=== PATIENT | female | born 1990 | race Caucasian/White ===

== ENCOUNTER 2016-09-05 12:17 | Emergency (ER) | payer OTHER ==
[2016-09-05 12:18] VITALS: BMI 28.3
[2016-09-05 12:32] VITALS: O2SAT 98
--- NOTE | 2016-09-05 13:52 | ED PDOC ---
HPI: Chest Pain Time Seen by Provider: 09/05/16 12:51 Chief Complaint (Nursing): Chest Pain Chief Complaint (Provider): Chest Pain History Per: Patient History/Exam Limitations: no limitations Onset/Duration Of Symptoms: Days Current Symptoms Are (Timing): Still Present Severity: Mild Quality: Pressure, "Pain" Associated Symptoms: denies: Nausea, Dyspnea, Syncope Modifying Factors: None Exacerbating Factors: None Alleviating Factors: None Additional Complaint(s): Patient is a 26 year old female who presents to ED for chest pain for 3 days. Pain is described as pressure to the right sided with radiation to mid sternum, worsened with deep breathing. Patient notes mild relief with hunching forward. Denies left sided chest pain, radiation to the back/abdomen, dizziness, headache , leg pain. Patient denies any recent URI symptoms Of note patient returned to the gym today for the first time in 3 weeks and the pain was unchanged Past Medical History Reviewed: Historical Data, Nursing Documentation, Vital Signs Vital Signs: Last Vital Signs Temp 97.8 F 09/05/16 12:29 Pulse 80 09/05/16 12:29 Resp 20 09/05/16 12:29 BP 108/62 09/05/16 12:29 Pulse Ox 98 09/05/16 13:56 - Medical History PMH: Asthma - Surgical History Surgical History: No Surg Hx - Family History Family History: States: Unknown Family Hx - Living Arrangements Living Arrangements: With Family - Immunization History Hx Tetanus Toxoid Vaccination: No Hx Influenza Vaccination: No Hx Pneumococcal Vaccination: No - Home Medications Home Medications: Ambulatory Orders Medication Instructions Recorded Vit Calc,Iron,Folic 1 tab PO DAILY 07/11/16 [ Vitamins] Ibuprofen [Motrin] 600 mg PO TID PRN #30 tab 09/05/16 - Allergies Allergies/Adverse Reactions: Allergies Allergy/AdvReac Type Severity Reaction Status Date / Time No Known Allergies Allergy Verified 09/05/16 12:29 Review of Systems ROS Statement: Except As Marked, All Systems Reviewed And Found Negative Constitutional: Negative for: Fever, Weakness Cardiovascular: Positive for: Chest Pain. Negative for: Palpitations, Light Headedness Respiratory: Positive for: Pleuritic Pain. 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 Negative for: Murmur Respiratory: Positive for: Normal Breath Sounds. Negative for: Respiratory Distress Gastrointestinal/Abdominal: Positive for: Normal Exam, Soft. Negative for: Tenderness Back: Positive for: Normal Inspection. Negative for: L CVA Tenderness, R CVA Tenderness Extremity: Positive for: Normal ROM. Negative for: Pedal Edema, Calf Tenderness Lymphatic: Positive for: Normal Exam Neurologic/Psych: Positive for: Alert, Oriented, Gait (normal ). Negative for: Motor/Sensory Deficits - Laboratory Results Result Diagrams: 09/05/16 13:30 09/05/16 13:30 - ECG ECG: Positive for: Interpreted By Me, Viewed By Me ECG Rhythm: Positive for: Normal QRS, Normal ST Segment, Sinus Rhythm (66). Negative for: ST/T Changes O2 Sat by Pulse Oximetry: 98 (RA) Pulse Ox Interpretation: Normal - Radiology X-Ray: Interpreted by Me, Viewed By Me, Read By Radiologist X-Ray Interpretation: No Acute Disease Medical Decision Making Medical Decision Making: Time: 131 Initial impression: Chest pain R/O ACS Initial plan: -- EKG -- CMP -- Lipase -- Troponin -- Urine preg -- CBC -- D-Dimer -- CXR -- Toradol -- Cardiac monitoring Scribe Attestation: Documented by Ruby Diop acting as a scribe for Giacomo Robin PA-C. MD Scribe Attestation: All medical record entries made by the Scribe were at my direction and personally dictated by me. I have reviewed the chart and agree that the record accurately reflects my personal performance of the history, physical exam, medical decision making, and the department course for this patient. I have also personally directed, reviewed, and agree with the discharge instructions and disposition. Labs reviewed no acute finding. Trop and d-dimer negative she has no risk factors for PE/DVT, no tachycardia, negative d-dimer with chest wall tenderness. she went to the gym and worked out today with no change in her pain, no left sided pain likely musculoskeletal in nature - she states after toradol pain has greatly improved discussed labs, finding and likely reason for pain, return information discussed , follow up discussed all questions answered. Disposition - Clinical Impression Clinical Impression: Chest wall pain - Patient ED Disposition Is Patient to be Admitted: No Counseled Patient/Family Regarding: Studies Performed, Diagnosis, Need For Followup, Rx Given - Disposition Referrals: [facility] [Outside] Disposition: Routine/Home Disposition Time: 15:21 Condition: IMPROVED Additional Instructions: follow up with primary doctor or clinic without fail return for any new concerns. you should follow up with a primary doctor prior to start work out program Prescriptions: Ibuprofen [Motrin] 600 mg PO TID PRN #30 tab PRN Reason: Other Instructions: Chest Wall Pain (ED), Noncardiac Chest Pain (ED) Print Language: AMERICAN
[2016-09-05 13:53] LABS: BASO # 0.1 K/uL (0.0-0.2); BASO % 0.7 % (0.0-2.0); EOS # 0.2 K/uL (0.0-0.7); EOS % 2.2 % (0.0-4.0); LYMPH # 1.2 K/uL (1.0-4.3); LYMPH % 17.4 % (20.0-40.0); MEAN CELL VOLUME 80.5 fl (81.0-99.0); MEAN CORPUSCULAR HEMOGLOBIN 25.7 pg (27.0-31.0); MEAN CORPUSCULAR HGB CONC 31.9 g/dL (33.0-37.0); MEAN PLATELET VOLUME 9.6 fl (7.2-11.7); MONO # 0.3 K/uL (0.0-0.8); MONO % 4.9 % (0.0-10.0); NEUT # 5.4 K/uL (1.8-7.0); NEUT % 74.8 % (50.0-75.0); NRBC % 0.1 % (0.0-0.0); RED CELL DISTRIBUTION WIDTH 17.9 % (11.5-14.5); WHITE BLOOD COUNT 7.2 K/uL (4.8-10.8)
[2016-09-05 14:05] LABS: ALB/GLOB RATIO 1.2 (1.0-2.1); ALKALINE PHOSPHATASE 98 U/L (38-126); ALT/SGPT 33 U/L (9-52); AST/SGOT 32 U/L (14-36); BILIRUBIN,TOTAL 0.4 mg/dl (0.2-1.3); BLOOD UREA NITROGEN 15 mg/dl (7-17); CALCIUM 9.6 mg/dL (8.4-10.2); CARBON DIOXIDE 23 mmol/L (22-30); CHLORIDE 106 mmol/L (98-107); GFR AFRICAN-AMERICAN > 60; GLUCOSE,RANDOM 87 mg/dL (65-105); LIPASE 95 U/L (23-300); POTASSIUM 4.1 MMOL/L (3.6-5.0); SODIUM 143 mmol/l (132-148); TOTAL PROTEIN 7.9 G/DL (6.3-8.2)
--- NOTE | 2016-09-05 14:56 | RAD ---
HISTORY: chest pain COMPARISON: Comparison chest 03/04/2014. TheNo prior. TECHNIQUE: Chest PA and lateral FINDINGS: LUNGS: No active pulmonary disease. PLEURA: No significant pleural effusion identified. No pneumothorax apparent. CARDIOVASCULAR: Normal. OSSEOUS STRUCTURES: No significant abnormalities. VISUALIZED UPPER ABDOMEN: Normal. OTHER FINDINGS: None. IMPRESSION: No active disease.
[2016-09-05 15:36] VITALS: BP 128/78; PULSE 78; RESP 19; TEMP 97.7
--- NOTE | 2016-09-06 10:56 | CARD ---
APPROVED REPORT EKG Measurement Heart [id number] <Conclusion> Normal sinus rhythm Normal ECG
== END 2016-09-05 15:37 | disposition home or self-care (01) ==
LOC: H.ER 12:17
DX: R07.9 Chest pain, unspecified (principal)

== ENCOUNTER 2016-09-26 22:07 | Emergency (ER) | payer SELFPAY ==
[2016-09-26 22:07] VITALS: BMI 28.3
[2016-09-26 22:14] VITALS: BP 110/63; PULSE 70; RESP 18; TEMP 97.6; O2SAT 100
--- NOTE | 2016-09-26 22:40 | ED PDOC ---
HPI: General Adult Time Seen by Provider: 09/26/16 22:16 Chief Complaint (Nursing): Lower Extremity Problem/Injury Chief Complaint (Provider): R foot pain History Per: Patient Additional Complaint(s): Pt. states for the past 3 days she's had atraumatic R foot pain, swelling, and redness. Reports that she's had symptoms in the past but have never been that severe until now. Denies FB sensation, fever, trauma, hx of DM. Past Medical History Reviewed: Historical Data, Nursing Documentation, Vital Signs Vital Signs: Last Vital Signs Temp 97.6 F 09/26/16 22:12 Pulse 70 09/26/16 22:12 Resp 18 09/26/16 22:12 BP 110/63 09/26/16 22:12 Pulse Ox 100 09/26/16 22:44 - Medical History PMH: Asthma - Family History Family History: States: No Known Family Hx - Immunization History Hx Tetanus Toxoid Vaccination: No Hx Influenza Vaccination: No Hx Pneumococcal Vaccination: No - Home Medications Home Medications: Ambulatory Orders Medication Instructions Recorded Vit Calc,Iron,Folic 1 tab PO DAILY 07/11/16 [ Vitamins] Cephalexin [cephalexin] 500 mg PO Q6 #28 cap 09/26/16 Naproxen [Naprosyn] 500 mg PO BID PRN #30 tab 09/26/16 - Allergies Allergies/Adverse Reactions: Allergies Allergy/AdvReac Type Severity Reaction Status Date / Time No Known Allergies Allergy Verified 09/05/16 12:29 Review of Systems ROS Statement: Except As Marked, All Systems Reviewed And Found Negative Musculoskeletal: Positive for: Foot Pain Physical Exam - Physical Exam Appears: Positive for: Well, Non-toxic, No Acute Distress Skin: Positive for: Normal Color, Warm. Negative for: Rash Pulses-Dorsalis Pedis (R): 2+ Extremity: Positive for: Normal ROM, Other (R plantar surface of foot between 2nd and 3rd MCP with mild swelling and erythema without vesicle, fluctuance, induration, or break in skin integrity) - ECG O2 Sat by Pulse Oximetry: 100 - Progress ED Course And Treament: FSBS: 107 Toradol 15mg IM given. Foot ry wrapped by RN. Crutches along with crutch walking instructions provided. Disposition - Clinical Impression Clinical Impression: Cellulitis - Patient ED Disposition Is Patient to be Admitted: No - Disposition Referrals: Marty Patel MD [Staff Provider] - [facility] [Outside] Disposition: Routine/Home Disposition Time: 22:43 Condition: STABLE Additional Instructions: Follow up with podiatry on Thursday without fail. Prescriptions: Cephalexin [cephalexin] 500 mg PO Q6 #28 cap Naproxen [Naprosyn] 500 mg PO BID PRN #30 tab PRN Reason: Pain Instructions: Cellulitis (ED)
== END 2016-09-26 23:03 | disposition home or self-care (01) ==
LOC: H.ER 22:07
DX: L03.116 Cellulitis of left lower limb (principal); J45.909 Unspecified asthma, uncomplicated
CPT/HCPCS: 81025; 82948; 96372; 99285; J1885

== ENCOUNTER 2017-02-15 10:35 | Emergency (ER) | payer MEDICAID, OTHER ==
[2017-02-15 10:43] VITALS: BMI 21.5
[2017-02-15 10:51] VITALS: RESP 16; TEMP 97.8; O2SAT 99
[2017-02-15 11:19] LABS: BASO # 0.1 K/uL (0.0-0.2); BASO % 1.1 % (0.0-2.0); EOS # 0.2 K/uL (0.0-0.7); EOS % 3.8 % (0.0-4.0); HEMATOCRIT 37.9 % (34.0-47.0); LYMPH # 1.2 K/uL (1.0-4.3); LYMPH % 23.5 % (20.0-40.0); MEAN CELL VOLUME 84.9 fl (81.0-99.0); MEAN CORPUSCULAR HGB CONC 31.8 g/dL (33.0-37.0); MONO # 0.4 K/uL (0.0-0.8); MONO % 7.8 % (0.0-10.0); NEUT # 3.1 K/uL (1.8-7.0); NEUT % 63.8 % (50.0-75.0); RED CELL DISTRIBUTION WIDTH 14.8 % (11.5-14.5); WHITE BLOOD COUNT 4.9 K/uL (4.8-10.8)
[2017-02-15 11:28] LABS: BLOOD UREA NITROGEN 20 mg/dl (7-17); CALCIUM 9.4 mg/dL (8.4-10.2); CARBON DIOXIDE 24 mmol/L (22-30); CHLORIDE 106 mmol/L (98-107); GFR AFRICAN-AMERICAN > 60; GLUCOSE,RANDOM 101 mg/dL (65-105); POTASSIUM 3.9 MMOL/L (3.6-5.0); SODIUM 140 mmol/l (132-148)
--- NOTE | 2017-02-15 11:38 | ED PDOC ---
HPI: Chest Pain Time Seen by Provider: 02/15/17 10:44 Chief Complaint (Nursing): Chest Pain Chief Complaint (Provider): Chest pain History Per: Patient History/Exam Limitations: no limitations Onset/Duration Of Symptoms: Hrs Current Symptoms Are (Timing): Still Present Associated Symptoms: Nausea Exacerbating Factors: Deep Breathing Additional Complaint(s): Patient is a 26 y/o female with a past medical history of asthma brought to the emergency department by EMS for left sided, constant and non-radiating chest pain with associated nausea that started an hour prior to arrival and worsens when she takes a deep breath. Denies similar pain in the past, shortness of breath, cough, or any other complaints. Of note, patient delivered a baby several months ago who she bottle-feeds. PCP: Dr. Chuy Cotter Past Medical History Reviewed: Historical Data, Nursing Documentation, Vital Signs Vital Signs: Last Vital Signs Temp 97.8 F 02/15/17 10:45 Pulse 64 02/15/17 12:56 Resp 16 02/15/17 10:45 BP 116/89 02/15/17 10:45 Pulse Ox 99 02/15/17 12:56 - Medical History PMH: Asthma - Surgical History Surgical History: No Surg Hx - Family History Family History: States: CAD, Other Other Family History: Pulmonary embolism - Social History Current smoker - smoking cessation education provided: No Ex-Smoker (has not smoked in the last 12 months): No Alcohol: None Drugs: Denies - Immunization History Hx Tetanus Toxoid Vaccination: No Hx Influenza Vaccination: No Hx Pneumococcal Vaccination: No - Home Medications Home Medications: Ambulatory Orders Medication Instructions Recorded Vit Calc,Iron,Folic 1 tab PO DAILY 07/11/16 [ Vitamins] Cephalexin [cephalexin] 500 mg PO Q6 #28 cap 09/26/16 Naproxen [Naprosyn] 500 mg PO BID PRN #30 tab 09/26/16 Ibuprofen [Motrin] 600 mg PO Q6 #20 tab 02/15/17 - Allergies Allergies/Adverse Reactions: Allergies Allergy/AdvReac Type Severity Reaction Status Date / Time No Known Allergies Allergy Verified 09/05/16 12:29 TE Risk Score for UA/NSTEMI - TE Risk Score Age > 64: NO 3 or more CAD Risk Factors: NO Known CAD (Stenosis greater than 50%): NO Aspirin use in past 7 days: NO Severe Angina: NO EKG ST changes greater than 0.5mm: NO Positive Cardiac Marker: NO TE Score: 0 Risk %: 5% Curb-65 Severity Score - CURB-65 Severity Score Confusion: No Bun >19mg/dl (>7mmol/L): No Respiratory Rate greater than/equal to 30: No Systolic BP <90 or Diastolic BP less than/equal 60mmHg: No Age >64: No Curb-65 Score: 0 Percentage 30-day mortality: 0.6% Review of Systems ROS Statement: Except As Marked, All Systems Reviewed And Found Negative Cardiovascular: Positive for: Chest Pain Respiratory: Negative for: Cough, Shortness of Breath Gastrointestinal: Positive for: Nausea Physical Exam - Reviewed Nursing Documentation Reviewed: Yes Vital Signs Reviewed: Yes - Physical Exam Appears: Positive for: Uncomfortable Head Exam: Positive for: ATRAUMATIC, NORMAL INSPECTION, NORMOCEPHALIC Skin: Positive for: Normal Color, Warm, Dry Eye Exam: Positive for: Normal appearance Neck: Positive for: Normal, Painless ROM, Supple Cardiovascular/Chest: Positive for: Regular Rate, Rhythm, Other (Mild tenderness over sternum). Negative for: Chest Non Tender, Murmur Respiratory: Positive for: Normal Breath Sounds. Negative for: Accessory Muscle Use, Wheezing, Respiratory Distress Gastrointestinal/Abdominal: Positive for: Normal Exam, Soft. Negative for: Tenderness Extremity: Positive for: Normal ROM. Negative for: Pedal Edema Neurologic/Psych: Positive for: Alert, Oriented (x3) - Laboratory Results Result Diagrams: 02/15/17 11:10 02/15/17 11:10 - ECG ECG Rhythm: Positive for: Normal QRS, Normal ST Segment. Negative for: ST/T Changes Rate: 64 O2 Sat by Pulse Oximetry: 99 (RA) Pulse Ox Interpretation: Normal - Radiology X-Ray: Interpreted by Me, Viewed By Me X-Ray Interpretation: No Acute Disease - Progress Re-evaluation Time: 12:40 Condition: Re-examined, Improved Medical Decision Making Medical Decision Making: Time: 11:03 Initial impression: Chest pain Differential diagnoses include but not limited to pulmonary embolism, chest wall pain, and pneumothorax Initial plan: EKG Labs Chest X-Ray Toradol 15 mg IVP monitoring analyst continued Reevaluation 11:12 Chest x-ray reviewed by me. No acute findings. Scribe Attestation: Documented by Ирина Mata, acting as a scribe for Ida Gonzalez MD. Provider Scribe Attestation: All medical record entries made by the Scribe were at my direction and personally dictated by me. I have reviewed the chart and agree that the record accurately reflects my personal performance of the history, physical exam, medical decision making, and the department course for this patient. I have also personally directed, reviewed, and agree with the discharge instructions and disposition. Disposition - Clinical Impression Clinical Impression: Chest pain - Patient ED Disposition Is Patient to be Admitted: No Doctor Will See Patient In The: Office Counseled Patient/Family Regarding: Studies Performed, Diagnosis, Need For Followup - Disposition Referrals: [facility] [Outside] Disposition: Routine/Home Disposition Time: 12:43 Condition: GOOD Additional Instructions: Follow up with your PCP in 2-3 days. Prescriptions: Ibuprofen [Motrin] 600 mg PO Q6 #20 tab Instructions: Chest Pain (ED)
[2017-02-15 11:52] VITALS: PULSE 64
[2017-02-15 13:12] VITALS: BP 118/71
--- NOTE | 2017-02-15 13:36 | RAD ---
PROCEDURE: CHEST RADIOGRAPH, 1 VIEW HISTORY: chest pain COMPARISON: Comparison chest 09/05/2016 FINDINGS: LUNGS: Clear. PLEURA: No pneumothorax or pleural fluid seen. CARDIOVASCULAR: Normal. OSSEOUS STRUCTURES: No significant abnormalities. VISUALIZED UPPER ABDOMEN: Normal. OTHER FINDINGS: None. IMPRESSION: No active disease.
--- NOTE | 2017-02-15 22:36 | CARD ---
APPROVED REPORT EKG Measurement Heart [id number] <Conclusion> Normal sinus rhythm Normal ECG
== END 2017-02-15 13:12 | disposition home or self-care (01) ==
LOC: H.ER 10:35
DX: R07.89 Other chest pain (principal); Z82.49 Family history of ischemic heart disease and other diseases of the circulatory system
CPT/HCPCS: 71010; 80048; 81025; 84484; 85025; 85378; 93005; 96374; 99282; J1885

== ENCOUNTER 2017-06-12 01:43 | Emergency (ER) | payer MEDICAID, OTHER ==
[2017-06-12 01:44] VITALS: BMI 21.5
[2017-06-12 02:15] VITALS: BP 103/66; PULSE 76; RESP 16; TEMP 97.8; O2SAT 98
[2017-06-12] MEDS ORDERED: Oxycodone/Acetaminophen 5/325 mg Tab PO STA (02:29)
[2017-06-12] MEDS ORDERED: Oxycodone/Acetaminophen 5/325 mg Tab ONE (02:40)
--- NOTE | 2017-06-12 03:38 | ED PDOC ---
Lower Extremity Pain/Injury Time Seen by Provider: 06/12/17 02:26 Chief Complaint (Nursing): Lower Extremity Problem/Injury History Per: Patient History/Exam Limitations: no limitations Onset/Duration Of Symptoms: Other (x tonight) Current Symptoms Are (Timing): Still Present Additional Complaint(s): Ramandeep is a 27 year old female who presents to the emergency department with left foot pain. Patient states she stump her pinky toe against door stopper. Denies any other injuries. PMD: Provider [place] Past Medical History Reviewed: Historical Data, Nursing Documentation, Vital Signs Vital Signs: Last Vital Signs Temp 97.8 F 06/12/17 02:13 Pulse 76 06/12/17 02:13 Resp 16 06/12/17 02:13 BP 103/66 06/12/17 02:13 Pulse Ox 98 06/12/17 02:13 - Medical History PMH: Asthma Denies: Chronic Kidney Disease - Surgical History Surgical History: No Surg Hx - Family History Family History: States: Unknown Family Hx, CAD - Social History Current smoker - smoking cessation education provided: No Alcohol: None Drugs: Denies - Immunization History Hx Tetanus Toxoid Vaccination: No Hx Influenza Vaccination: No Hx Pneumococcal Vaccination: No - Home Medications Home Medications: Ambulatory Orders Medication Instructions Recorded Vit Calc,Iron,Folic 1 tab PO DAILY 07/11/16 [ Vitamins] Cephalexin [cephalexin] 500 mg PO Q6 #28 cap 09/26/16 Naproxen [Naprosyn] 500 mg PO BID PRN #30 tab 09/26/16 Ibuprofen [Motrin] 600 mg PO Q6 #20 tab 02/15/17 Naproxen [Naprosyn] 500 mg PO Q6 #30 tablet 06/12/17 - Allergies Allergies/Adverse Reactions: Allergies Allergy/AdvReac Type Severity Reaction Status Date / Time No Known Allergies Allergy Verified 09/05/16 12:29 Review of Systems Musculoskeletal: Positive for: Other (Pinky Toe Pain) Physical Exam - Reviewed Nursing Documentation Reviewed: Yes Vital Signs Reviewed: Yes - Physical Exam Extremity: Positive for: Other (Tenderness to left pinky, no swelling or erythema, no step offs) - ECG O2 Sat by Pulse Oximetry: 98 (RA) Pulse Ox Interpretation: Normal - Radiology X-Ray: Interpreted by Me, Viewed By Me X-Ray Interpretation: No Acute Disease Medical Decision Making Medical Decision Making: Time: 02:29 Impression: Contusion vs. Fracture Plan: - Motrin Tab 600 mg PO STAT STA - Percocet 5/325 mg Tab - Left Foot 5th Digit (Toe) X-Ray was viewed and interpreted by me. Negative results. Upon provider evaluation patient is medically stable, and requires no further treatment in the ED at this time. Patient will be discharged with Rx for Naprosyn. Counseling was provided and all questions were answered regarding diagnosis and need for follow up with Podiatry Clinic. There is agreement to discharge plan. Return if symptoms persist or worsen. Scribe Attestation: Documented by Stephon Sosa, acting as a scribe for Charlie Maravilla MD Provider Scribe Attestation: All medical record entries made by the Scribe were at my direction and personally dictated by me. I have reviewed the chart and agree that the record accurately reflects my personal performance of the history, physical exam, medical decision making, and the department course for this patient. I have also personally directed, reviewed, and agree with the discharge instructions and disposition. Disposition - Clinical Impression Clinical Impression: Toe contusion - Patient ED Disposition Is Patient to be Admitted: No - Disposition Referrals: Podiatry Clinic [Outside] Disposition: Routine/Home Disposition Time: 03:35 Condition: STABLE Prescriptions: Naproxen [Naprosyn] 500 mg PO Q6 #30 tablet Instructions: Foot Contusion (ED) Forms: [employer] (Latvian)
--- NOTE | 2017-06-12 12:19 | RAD ---
PROCEDURE: Radiographs of the left small digit. TECHNIQUE:: AP radiograph of the left foot, with oblique and lateral view of the left small digit. COMPARISON: None. FINDINGS: BONES: In the oblique view, there is a triangular bony structure too large to represent an accessory ossicle for the 5th digit proximal interphalangeal joint. It is appreciated plantar to the head of the proximal phalanx left small digit and cortical margins are not identified at the dorsal side of this fragment suspicious for a displaced fracture. Follow-up CT through the digits may be useful for better characterization. Lateral view is appear limited due to excessive pain experienced during attempted isolating the small digit. JOINTS: No dislocation is appreciate throughout the 5th digit and single AP view of the left foot is otherwise unremarkable appearing. SOFT TISSUES: Normal. OTHER FINDINGS: None. IMPRESSION: Findings highly suspicious for a minimally displaced fracture of the proximal phalanx left small digit. No dislocation. Follow-up CT through the left forefoot may be useful for better characterization of this finding. (Discrepancy common side and provided through PACS emergency comment section)
== END 2017-06-12 04:04 | disposition home or self-care (01) ==
LOC: H.ER 01:43
DX: M79.675 Pain in left toe(s) (principal); J45.909 Unspecified asthma, uncomplicated

== ENCOUNTER 2017-06-15 13:17 | Emergency (ER) | payer OTHER ==
[2017-06-15 13:18] VITALS: BMI 21.5
[2017-06-15 13:32] VITALS: BP 106/75; PULSE 86; RESP 16; TEMP 98; O2SAT 100
--- NOTE | 2017-06-15 14:27 | ED PDOC ---
Lower Extremity Pain/Injury Time Seen by Provider: 06/15/17 13:28 Chief Complaint (Nursing): Lower Extremity Problem/Injury Chief Complaint (Provider): Left toe injury History Per: Patient History/Exam Limitations: no limitations Onset/Duration Of Symptoms: Days (3 days ago) Current Symptoms Are (Timing): Still Present Additional Complaint(s): 27 y/o patient returns to the ED after being seen 3 days ago for a reevaluation with respect to her left toe injury. Patient received a call from the ED saying that her x-rays, which were initially normal, might indicate a possible fracture. Patient also states that she removed the darlin tape put around her toes at home due to pain, and has been experiencing increasing pain to the left 5th toe. Patient denies numbness, tingling, or any new injury. Past Medical History Reviewed: Historical Data, Nursing Documentation, Vital Signs Vital Signs: Last Vital Signs Temp 98.0 F 06/15/17 13:30 Pulse 86 06/15/17 13:30 Resp 16 06/15/17 13:30 BP 106/75 06/15/17 13:30 Pulse Ox 100 06/15/17 13:30 - Medical History PMH: Asthma Denies: Chronic Kidney Disease - Surgical History Surgical History: No Surg Hx - Family History Family History: States: Unknown Family Hx, CAD - Social History Current smoker - smoking cessation education provided: No Ex-Smoker (has not smoked in the last 12 months): No Alcohol: None Drugs: Denies - Immunization History Hx Tetanus Toxoid Vaccination: No Hx Influenza Vaccination: No Hx Pneumococcal Vaccination: No - Home Medications Home Medications: Ambulatory Orders Medication Instructions Recorded Vit Calc,Iron,Folic 1 tab PO DAILY 07/11/16 [ Vitamins] Cephalexin [cephalexin] 500 mg PO Q6 #28 cap 09/26/16 Naproxen [Naprosyn] 500 mg PO BID PRN #30 tab 09/26/16 Ibuprofen [Motrin] 600 mg PO Q6 #20 tab 02/15/17 Naproxen [Naprosyn] 500 mg PO Q6 #30 tablet 06/12/17 Acetaminophen with Codeine 1 - 2 each PO Q6 #10 tablet 06/15/17 [Tylenol with Codeine #3 Tablet] - Allergies Allergies/Adverse Reactions: Allergies Allergy/AdvReac Type Severity Reaction Status Date / Time No Known Allergies Allergy Verified 09/05/16 12:29 Review of Systems ROS Statement: Except As Marked, All Systems Reviewed And Found Negative Constitutional: Negative for: Fever Musculoskeletal: Positive for: Foot Pain (increasing left 5th toe pain) Physical Exam - Reviewed Nursing Documentation Reviewed: Yes Vital Signs Reviewed: Yes - Physical Exam Extremity: Positive for: Tenderness (left 5th toe), Other (mild ecchymosis on doral surface area of the foot). Negative for: Deformity DTR - Ankle (R): 2+ DTR - Ankle (L): 2+ - ECG O2 Sat by Pulse Oximetry: 100 (RA) Pulse Ox Interpretation: Normal - Progress ED Course And Treament: CT L foot w/o contrast: L 5th proximal phalanx chip fx Toes darlin taped. Cast shoe placed. Crutches provided. Instructed to f/u with podiatry clinic. Medical Decision Making Medical Decision Making: Time: --13:53 Impression: --Left Toe Injury Plan: --CT EXT Lower W/O Contrast Reassess -- Scribe Attestation: Documented by Nicolas Christie acting as a scribe for BELA Jang Disposition - Clinical Impression Clinical Impression: Toe fracture - Patient ED Disposition Is Patient to be Admitted: No - Disposition Referrals: Podiatry Clinic [Outside] [facility] [Outside] Disposition: Routine/Home Disposition Time: 16:45 Condition: STABLE Prescriptions: Acetaminophen with Codeine [Tylenol with Codeine #3 Tablet] 1 - 2 each PO Q6 # 10 tablet Instructions: Toe Fracture (ED) Forms: [facility] ([place]), [facility] School/Work Excuse
--- NOTE | 2017-06-15 17:25 | CT ---
PROCEDURE: CT of the left foot without contrast HISTORY: attention L foot; ? L 5th toe fx COMPARISON: Comparison is made with the previous x-ray of the left foot dated 06/12/2017 TECHNIQUE: Axial and reformatted coronal and sagittal CT images of the left foot were obtained without IV contrast administration. 3D reconstructed images were processed and submitted for evaluation. Total exam DLP: 148.10 FINDINGS: There is a displaced chip fracture at the distal end of the proximal phalanx of the 5th toe extending to the articular surface of the proximal interphalangeal joint. No other acute fracture seen. There is subcutaneous soft tissue edema and stranding adjacent to 1st toe. IMPRESSION: Acute displaced chip fracture at the distal end of the proximal phalanx of the 5th toe. Preliminary report was submitted by [facility].
== END 2017-06-15 16:59 | disposition home or self-care (01) ==
LOC: H.ER 13:17
DX: M79.675 Pain in left toe(s) (principal)

== ENCOUNTER 2017-07-01 20:44 | Emergency (ER) | payer OTHER ==
[2017-07-01 20:45] VITALS: BMI 21.5
[2017-07-01 20:51] VITALS: BP 131/54; PULSE 100; RESP 16; TEMP 101; O2SAT 100
--- NOTE | 2017-07-01 21:06 | ED PDOC ---
HPI: CCC, URI, Sore Throat Time Seen by Provider: 07/01/17 20:59 Chief Complaint (Nursing): Flu-like Symptoms Chief Complaint (Provider): Flu-like Symptoms History Per: Patient History/Exam Limitations: no limitations Onset/Duration Of Symptoms: Days (x 4) Current Symptoms Are (Timing): Still Present Sick Contacts (Context): Family Member(s) (daughters) Associated Symptoms: Fever, Sore Throat, Cough, Myalgias, Nasal Congestion Additional Complaint(s): 27 y/o female presents to the emergency department complaining of cough with associated fever, congestion, sore throat, and body aches for 4 days. Has taken 3 days of Zithromax and 3 days of Tamiflu without improvement. Today took Motrin at 6PM and Tylenol at 4PM. Patient has history of asthma but is not using an inhaler. Notes wheezing, coughing, and feeling generally not well. No vomiting or diarrhea. (+)Sick contacts at home, both daughters have been diagnosed with flu. PMD: None Past Medical History Reviewed: Historical Data, Nursing Documentation, Vital Signs Vital Signs: Last Vital Signs Temp 101 F H 07/01/17 20:48 Pulse 100 H 07/01/17 20:48 Resp 16 07/01/17 20:48 BP 131/54 L 07/01/17 20:48 Pulse Ox 100 07/01/17 21:09 - Medical History PMH: Asthma Denies: Chronic Kidney Disease - Family History Family History: States: Unknown Family Hx, CAD - Immunization History Hx Tetanus Toxoid Vaccination: No Hx Influenza Vaccination: No Hx Pneumococcal Vaccination: No - Home Medications Home Medications: Ambulatory Orders Medication Instructions Recorded Vit Calc,Iron,Folic 1 tab PO DAILY 07/11/16 [ Vitamins] Cephalexin [cephalexin] 500 mg PO Q6 #28 cap 09/26/16 Naproxen [Naprosyn] 500 mg PO BID PRN #30 tab 09/26/16 Ibuprofen [Motrin] 600 mg PO Q6 #20 tab 02/15/17 Naproxen [Naprosyn] 500 mg PO Q6 #30 tablet 06/12/17 Acetaminophen with Codeine 1 - 2 each PO Q6 #10 tablet 06/15/17 [Tylenol with Codeine #3 Tablet] Acetaminophen [Acetaminophen Extra 2 tab PO Q6 PRN #24 tablet 07/01/17 Strength] Ibuprofen [Motrin Tab] 800 mg PO Q8 PRN #21 tab 07/01/17 Pseudoephedrine [Sudafed Tab] 60 mg PO Q6 PRN #24 tab 07/01/17 - Allergies Allergies/Adverse Reactions: Allergies Allergy/AdvReac Type Severity Reaction Status Date / Time No Known Allergies Allergy Verified 09/05/16 12:29 Review of Systems ROS Statement: Except As Marked, All Systems Reviewed And Found Negative Constitutional: Positive for: Fever, Other (body aches) ENT: Positive for: Nose Congestion, Throat Pain Respiratory: Positive for: Cough, Wheezing Gastrointestinal: Negative for: Nausea, Vomiting, Diarrhea Physical Exam - Reviewed Nursing Documentation Reviewed: Yes Vital Signs Reviewed: Yes - Physical Exam Appears: Positive for: Non-toxic, No Acute Distress Head Exam: Positive for: ATRAUMATIC, NORMAL INSPECTION, NORMOCEPHALIC Skin: Positive for: Normal Color, Warm, Dry Eye Exam: Positive for: EOMI, Normal appearance, PERRL ENT: Positive for: Nasal Congestion. Negative for: Pharyngeal Erythema, Tonsillar Exudate Neck: Positive for: Normal, Painless ROM, Supple Cardiovascular/Chest: Positive for: Regular Rate, Rhythm. Negative for: Murmur Respiratory: Positive for: Decreased Breath Sounds. Negative for: Rhonchi, Wheezing, Respiratory Distress Gastrointestinal/Abdominal: Positive for: Normal Exam, Soft. Negative for: Tenderness Neurologic/Psych: Positive for: Alert, Oriented - ECG O2 Sat by Pulse Oximetry: 100 (RA) Pulse Ox Interpretation: Normal Medical Decision Making Medical Decision Making: Initial Impression: 27 y/o female with flu-like symptoms Time: 21:04 Initial Plan: --ED urine --chest x-ray --NS IV 1000 ml at 1000 mls/hr --Sudafed 60 mg PO --Tylenol 975 mg PO --Reevaluation Scribe Attestation: Documented by Paulina Barnard, acting as a scribe for Charly Cisneros PA-C Provider Scribe Attestation: All medical record entries made by the Scribe were at my direction and personally dictated by me. I have reviewed the chart and agree that the record accurately reflects my personal performance of the history, physical exam, medical decision making, and the department course for this patient. I have also personally directed, reviewed, and agree with the discharge instructions and disposition. Disposition - Clinical Impression Clinical Impression: Influenza - Patient ED Disposition Is Patient to be Admitted: No - Disposition Disposition: Routine/Home Disposition Time: 22:48 Condition: FAIR Prescriptions: Acetaminophen [Acetaminophen Extra Strength] 2 tab PO Q6 PRN #24 tablet PRN Reason: Fever >100.4 F Ibuprofen [Motrin Tab] 800 mg PO Q8 PRN #21 tab PRN Reason: Fever >100.4 F Pseudoephedrine [Sudafed Tab] 60 mg PO Q6 PRN #24 tab PRN Reason: Nasal Congestion Instructions: Influenza (ED) Forms: [facility] (Nauruan), [facility] ED School/Work Excuse
[2017-07-01] MEDS: Sodium Chloride 0.9% 1,000 ML IV SCH ×2 (21:56→22:47)
--- NOTE | 2017-07-02 11:50 | RAD ---
HISTORY: ROUTINE COMPARISON: 02/15/2017 TECHNIQUE: Chest PA and lateral FINDINGS: LUNGS: No active pulmonary disease. PLEURA: No significant pleural effusion identified. No pneumothorax apparent. CARDIOVASCULAR: Normal. OSSEOUS STRUCTURES: No significant abnormalities. VISUALIZED UPPER ABDOMEN: Normal. OTHER FINDINGS: None. IMPRESSION: No active disease.
== END 2017-07-01 23:50 | disposition home or self-care (01) ==
LOC: H.ER 20:44
DX: J11.1 Influenza due to unidentified influenza virus with other respiratory manifestations (principal); J45.909 Unspecified asthma, uncomplicated
CPT/HCPCS: 71046; 81025; 99282; J7040

== ENCOUNTER 2017-08-12 08:47 | Emergency (ER) | payer OTHER ==
[2017-08-12 08:48] VITALS: BMI 21.5
[2017-08-12 09:02] VITALS: BP 110/70; PULSE 93; RESP 19; TEMP 98.4; O2SAT 97
[2017-08-12] MEDS ORDERED: Tdap Vaccine 0.5 ml Vial (10-64 yrs) IM ONE ×2 (10:00→10:35)
--- NOTE | 2017-08-12 10:23 | ED PDOC ---
Lower Extremity Pain/Injury Time Seen by Provider: 08/12/17 09:21 Chief Complaint (Nursing): Lower Extremity Problem/Injury Chief Complaint (Provider): Right Toe Injury History Per: Patient History/Exam Limitations: no limitations Onset/Duration Of Symptoms: Hrs Current Symptoms Are (Timing): Still Present Additional Complaint(s): Ramandeep Cramer is a 27 year old female with no past medical history that presents to the ED with a chief complaint of a right great toe injury. Patient reports that earlier this morning, she stubbed her toe against her dresser, and that it began to bleeding. Last tetanus unknown. Past Medical History Reviewed: Historical Data, Nursing Documentation, Vital Signs Vital Signs: Last Vital Signs Temp 98.4 F 08/12/17 09:01 Pulse 93 H 08/12/17 09:01 Resp 19 08/12/17 09:01 BP 110/70 08/12/17 09:01 Pulse Ox 97 08/12/17 09:01 - Medical History PMH: Asthma Denies: Chronic Kidney Disease - Family History Family History: States: Unknown Family Hx, CAD - Immunization History Hx Tetanus Toxoid Vaccination: No Hx Influenza Vaccination: No Hx Pneumococcal Vaccination: No - Home Medications Home Medications: Ambulatory Orders Medication Instructions Recorded Vit Calc,Iron,Folic 1 tab PO DAILY 07/11/16 [ Vitamins] Cephalexin [cephalexin] 500 mg PO Q6 #28 cap 09/26/16 Naproxen [Naprosyn] 500 mg PO BID PRN #30 tab 09/26/16 Ibuprofen [Motrin] 600 mg PO Q6 #20 tab 02/15/17 Naproxen [Naprosyn] 500 mg PO Q6 #30 tablet 06/12/17 Acetaminophen with Codeine 1 - 2 each PO Q6 #10 tablet 06/15/17 [Tylenol with Codeine #3 Tablet] Acetaminophen [Acetaminophen Extra 2 tab PO Q6 PRN #24 tablet 07/01/17 Strength] Albuterol HFA [Ventolin HFA 90 2 puff IH [id number] PRN #1 inh 07/01/17 mcg/actuation (8 g)] Ibuprofen [Motrin Tab] 800 mg PO Q8 PRN #21 tab 07/01/17 Pseudoephedrine [Sudafed Tab] 60 mg PO Q6 PRN #24 tab 07/01/17 Naproxen [Naprosyn] 500 mg PO BID PRN #15 tablet 08/12/17 - Allergies Allergies/Adverse Reactions: Allergies Allergy/AdvReac Type Severity Reaction Status Date / Time No Known Allergies Allergy Verified 08/12/17 09:00 Review of Systems ROS Statement: Except As Marked, All Systems Reviewed And Found Negative Musculoskeletal: Positive for: Foot Pain (right great toe injury) Physical Exam - Reviewed Nursing Documentation Reviewed: Yes Vital Signs Reviewed: Yes - Physical Exam Appears: Positive for: Non-toxic, No Acute Distress Head Exam: Positive for: ATRAUMATIC, NORMOCEPHALIC Skin: Positive for: Normal Color, Warm Eye Exam: Positive for: EOMI, Normal appearance, PERRL Pulses-Dorsalis Pedis (L): 2+ Pulses-Dorsalis Pedis (R): 2+ Pulses-Post. Tibialis (L): 2+ Pulses-Post. Tibialis (R): 2+ Extremity: Positive for: Normal ROM (full ROM right first toe), Tenderness ( Tenderness to palpation right first toe), Other (Dried blood present around the nail of right first toe). Negative for: Deformity (No obvious deformity) Neurologic/Psych: Positive for: Alert, Oriented. Negative for: Motor/Sensory Deficits - ECG O2 Sat by Pulse Oximetry: 97 (RA) Pulse Ox Interpretation: Normal Medical Decision Making Medical Decision Making: Impression: Right First Toe Injury Plan: * X-Ray Right Great Toe * Motrin 600 mg PO * Tetanus 0.5 ml IM * Urine Preg * Reevaluation Scribe Attestation: Documented by Gracie Rosas, acting as a scribe for Angelica Echeverria MD. Provider Scribe Attestation: All medical record entries made by the Scribe were at my direction and personally dictated by me. I have reviewed the chart and agree that the record accurately reflects my personal performance of the history, physical exam, medical decision making, and the department course for this patient. I have also personally directed, reviewed, and agree with the discharge instructions and disposition. Disposition - Clinical Impression Clinical Impression: Injury of toenail - Disposition Referrals: Podiatry Clinic [Outside] Disposition: Routine/Home Disposition Time: 11:46 Condition: STABLE Prescriptions: Naproxen [Naprosyn] 500 mg PO BID PRN #15 tablet PRN Reason: Pain, Moderate (4-7) Instructions: Toe Injury Forms: [facility] (Estonian)
--- NOTE | 2017-08-12 11:45 | CP.PCM.CON ---
History of Present Illness - History of Present Illness History of Present Illness: Consult note: Dr. Patel 27 year old female with no significant PMHx was seen and evaluated at bedside in ED s/p right toe injury. Patient reports that she stubbed her toe on a dresser and started bleeding which led her decision to come to the ED. Patient reports that she does not have too much pain now. Patient denies of taking any pain medications prior to coming to the ED. Patient denies of any pain to the toe when she moves it either. Patient denies of having any recent F/N/V/C/SOB/CP /headache/dizziness. Patient denies of having any other pedal complains at this time. PMHx: Denies PSHx: Denies Allergies: N.K.D.A SHx: Occasional EtOH, denies smoking, or illicit drug usage Past Patient History - Infectious Disease Hx of Infectious Diseases: None - Past Social History Smoking Status: Never Smoked - CARDIAC Hx Cardiac Disorders: No - PULMONARY Hx Asthma: Yes - NEUROLOGICAL Hx Neurological Disorder: No - HEENT Hx HEENT Problems: No - RENAL Hx Chronic Kidney Disease: No - ENDOCRINE/METABOLIC Hx Endocrine Disorders: No - HEMATOLOGICAL/ONCOLOGICAL Hx Blood Disorders: No - INTEGUMENTARY Hx Dermatological Problems: No - MUSCULOSKELETAL/RHEUMATOLOGICAL Hx Musculoskeletal Disorders: No - GASTROINTESTINAL Hx Gastrointestinal Disorders: No - GENITOURINARY/GYNECOLOGICAL Hx Genitourinary Disorders: No - PSYCHIATRIC Hx Psychophysiologic Disorder: No Hx Substance Use: No - SURGICAL HISTORY Hx Surgeries: No - ANESTHESIA Hx Anesthesia: No Meds Home Medications: Home Medication List Medication Instructions Recorded Confirmed Type Naproxen [Naprosyn] 500 mg PO BID PRN #15 tablet 08/12/17 Rx Allergies/Adverse Reactions: Allergies Allergy/AdvReac Type Severity Reaction Status Date / Time No Known Allergies Allergy Verified 08/12/17 09:00 Physical Exam - Constitutional Appears: Well, Non-toxic, No Acute Distress - Extremities Exam Additional comments: Right LE focused exam: VASC: DP/PT pulses are palpable 2/4, Cap refill time: < 3 sec to all digits, Temp gradient: warm to cool from proximal to distal, no pitting or non-pitting edema noted DERM: very distal aspect of the nail plate on the hallux appears to be de- attached, proximal aspect fully intact, no active bleeding, no erythema, no clinical suspicion of active infection NEURO: Protective sensation grossly intact ORTHO: minimal pain on palpation of the nail plate, no pain during AROM or PROM of the hallux, MMT: 5/5 in all 4 direction - Neurological Exam Neurological exam: Alert, Oriented x3 - Psychiatric Exam Psychiatric exam: Normal Affect, Normal Mood Results - Vital Signs Recent Vital Signs: Last Vital Signs Temp 98.4 F 08/12/17 09:01 Pulse 93 H 08/12/17 09:01 Resp 19 08/12/17 09:01 BP 110/70 08/12/17 09:01 Pulse Ox 97 08/12/17 10:26 Assessment & Plan - Assessment and Plan (Free Text) Assessment: 27 year old female with no significant PMHx was evaluated after a right toe injury. Plan: Patient seen and evaluated Discussed in details with attending Dr. Patel X-rays of the right foot ordered/reviewed - no cortical break or dislocations noted. no signs of acute fracture Hallucal nail cleaned with saline and nail plate and bed inspected for subungual laceration or hematoma - No acute findings Educated patient to let the distal aspect of the nail fall on its own Patient demonstrated verbal understanding Dry sterile dressing applied to the right hallux Thank you for the podiatry consult and allowing to take part in patient care - Date & Time Date: 08/12/17 Time: 11:49
--- NOTE | 2017-08-12 14:24 | RAD ---
PROCEDURE: Radiographs of the right great toe. TECHNIQUE:: AP radiograph of the right foot, with oblique and lateral view of the right great toe. COMPARISON: None. FINDINGS: BONES: Normal. No fracture. JOINTS: Normal. SOFT TISSUES: Normal. OTHER FINDINGS: None. IMPRESSION: Normal right great toe radiographs.
== END 2017-08-12 12:31 | disposition home or self-care (01) ==
LOC: H.ER 08:47
DX: S99.921A Unspecified injury of right foot, initial encounter (principal); W22.03XA Walked into furniture, initial encounter; Y93.9 Activity, unspecified; Z23 Encounter for immunization; J45.909 Unspecified asthma, uncomplicated

== ENCOUNTER 2017-12-07 22:29 | Emergency (ER) | payer OTHER ==
[2017-12-07 22:31] VITALS: BMI 21.5
[2017-12-07 22:40] VITALS: BP 123/87; PULSE 62; RESP 18; TEMP 98.3; O2SAT 98
[2017-12-07 23:20] LABS: BASO # 0.1 K/uL (0.0-0.2); BASO % 1.2 % (0.0-2.0); EOS # 0.3 K/uL (0.0-0.7); EOS % 4.7 % (0.0-4.0); HEMOGLOBIN 11.8 g/dL (12.0-16.0); LYMPH # 1.9 K/uL (1.0-4.3); LYMPH % 30.6 % (20.0-40.0); MEAN CELL VOLUME 88.2 fl (81.0-99.0); MEAN CORPUSCULAR HGB CONC 32.9 g/dL (33.0-37.0); MONO # 0.4 K/uL (0.0-0.8); NEUT # 3.5 K/uL (1.8-7.0); NEUT % 56.5 % (50.0-75.0); RBC 4.08 Mil/uL (3.80-5.20); WHITE BLOOD COUNT 6.2 K/uL (4.8-10.8)
[2017-12-07 23:31] LABS: ALB/GLOB RATIO 1.1 (1.0-2.1); ALT/SGPT 21 U/L (9-52); AST/SGOT 19 U/L (14-36); BLOOD UREA NITROGEN 18 mg/dl (7-17); GFR AFRICAN-AMERICAN > 60; GFR NON-AFRICAN AMERICAN > 60
--- NOTE | 2017-12-07 23:34 | ED PDOC ---
Lower Extremity Pain/Injury Time Seen by Provider: 12/07/17 22:45 Chief Complaint (Nursing): Lower Extremity Problem/Injury Chief Complaint (Provider): 3 days of right foot pain History Per: Patient History/Exam Limitations: no limitations Onset/Duration Of Symptoms: Days Current Symptoms Are (Timing): Still Present Additional Complaint(s): 27 yo female with no medical problems presents with right foot pain, plantar surface with an area of discoloration. Pt states it has happened in the past and when she saw podiatry her symptoms were improved. Pt states she called her recovery collector today and was told since the last time she saw them it was for a different injury she needed a new referral. Pt states in the past she also had bluish, purple discoloration on the plantar surface of the foot associated with pain. PT denies trauma. PT states last time in approx 1 week it resolved. No fever/chills. No recent weight loss. Past Medical History Reviewed: Historical Data, Nursing Documentation, Vital Signs Vital Signs: Last Vital Signs Temp 98.3 F 12/07/17 22:37 Pulse 62 12/07/17 22:37 Resp 18 12/07/17 22:37 BP 123/87 12/07/17 22:37 Pulse Ox 98 12/07/17 22:37 - Medical History PMH: Asthma Denies: Chronic Kidney Disease - Surgical History Surgical History: No Surg Hx - Family History Family History: States: Unknown Family Hx, CAD - Living Arrangements Living Arrangements: With Family - Social History Current smoker - smoking cessation education provided: No Alcohol: None Drugs: Denies - Immunization History Hx Tetanus Toxoid Vaccination: No Hx Influenza Vaccination: No Hx Pneumococcal Vaccination: No - Home Medications Home Medications: Ambulatory Orders Medication Instructions Recorded Vit Calc,Iron,Folic 1 tab PO DAILY 07/11/16 [ Vitamins] Cephalexin [cephalexin] 500 mg PO Q6 #28 cap 09/26/16 Naproxen [Naprosyn] 500 mg PO BID PRN #30 tab 09/26/16 Ibuprofen [Motrin] 600 mg PO Q6 #20 tab 02/15/17 Naproxen [Naprosyn] 500 mg PO Q6 #30 tablet 06/12/17 Acetaminophen with Codeine 1 - 2 each PO Q6 #10 tablet 06/15/17 [Tylenol with Codeine #3 Tablet] Acetaminophen [Acetaminophen Extra 2 tab PO Q6 PRN #24 tablet 07/01/17 Strength] Albuterol HFA [Ventolin HFA 90 2 puff IH [id number] PRN #1 inh 07/01/17 mcg/actuation (8 g)] Ibuprofen [Motrin Tab] 800 mg PO Q8 PRN #21 tab 07/01/17 Pseudoephedrine [Sudafed Tab] 60 mg PO Q6 PRN #24 tab 07/01/17 Naproxen [Naprosyn] 500 mg PO BID PRN #15 tablet 08/12/17 traMADol [Ultram] 50 mg PO Q6H PRN #15 tab 12/07/17 - Allergies Allergies/Adverse Reactions: Allergies Allergy/AdvReac Type Severity Reaction Status Date / Time No Known Allergies Allergy Verified 12/07/17 22:37 Review of Systems ROS Statement: Except As Marked, All Systems Reviewed And Found Negative Constitutional: Negative for: Fever, Chills Musculoskeletal: Positive for: Foot Pain Skin: Positive for: Bruising Physical Exam - Reviewed Nursing Documentation Reviewed: Yes Vital Signs Reviewed: Yes - Physical Exam Appears: Positive for: Well, Non-toxic, No Acute Distress Head Exam: Positive for: ATRAUMATIC, NORMAL INSPECTION, NORMOCEPHALIC Skin: Positive for: Warm. Negative for: Normal Color (purple/turner ecchymosis on the plantar surface of the distal right foot) Eye Exam: Positive for: Normal appearance ENT: Positive for: Normal ENT Inspection Neck: Positive for: Normal, Painless ROM Cardiovascular/Chest: Positive for: Regular Rate, Rhythm Respiratory: Positive for: Normal Breath Sounds. Negative for: Accessory Muscle Use Back: Positive for: Normal Inspection Extremity: Positive for: Normal ROM Neurologic/Psych: Positive for: Alert, Oriented - Laboratory Results Result Diagrams: 12/07/17 23:16 12/07/17 23:16 - ECG O2 Sat by Pulse Oximetry: 98 Medical Decision Making Medical Decision Making: XR - no acute fracture or dislocation Labs normal. Discussed f.u with recovery collector. Disposition - Clinical Impression Clinical Impression: Foot pain - Patient ED Disposition Is Patient to be Admitted: No Counseled Patient/Family Regarding: Diagnosis, Need For Followup, Rx Given - Disposition Referrals: Marty Patel MD [Staff Provider] - Disposition: Routine/Home Disposition Time: 23:33 Condition: STABLE Prescriptions: traMADol [Ultram] 50 mg PO Q6H PRN #15 tab PRN Reason: Pain Instructions: Muscle and Bone Pain (DC) Forms: [facility] (Khmer)
[2017-12-07 23:49] LABS: PARTIAL THROMBOPLASTIN TIME 33.9 Seconds (25.6-37.1); PROTHROMBIN TIME 10.9 Seconds (9.8-13.1)
--- NOTE | 2017-12-08 09:40 | RAD ---
PROCEDURE: Right Foot Radiographs. HISTORY: pain, bruising on plantar surface, no trauma COMPARISON: Radiographs right foot 08/12/2017 FINDINGS: BONES: Normal. No fracture. JOINTS: Normal. SOFT TISSUES: Normal. OTHER FINDINGS: None. IMPRESSION: No evidence of acute displaced fracture nor dislocation. If symptoms persist or occult fracture suspected clinically recommend repeat radiographs in 5-10 days as most fractures should become radiographically evident in this timeframe.
== END 2017-12-08 | disposition home or self-care (01) ==
LOC: H.ER 22:29
DX: M79.672 Pain in left foot (principal)